=== PATIENT | male | born 1990 | race American Indian/Alaskan Native ===

== ENCOUNTER → 2020-12-25 | Outpatient (CLI) | payer OTHER ==
[~2020-12-25] MED LIST: CODBUTACEC; CYCL10 PO; Cleocin HCl150 MG PO; HYDACE5; HYDACE5 PO; IBUP600 PO; NAPR220; PRED10 PO; RXCODACET PO; TRAZ50; TRIA80TC TOP
== END | disposition home or self-care (01) ==
LOC: LAB SHORT 17:12 → LAB 17:12
DX: N39.0 Urinary tract infection, site not specified (principal)
CPT/HCPCS: 87086